=== PATIENT | female | born 1995 | race Caucasian/White ===

== ENCOUNTER → 2019-04-06 | Outpatient (CLI) ==
[~2019-04-06] MED LIST: IBUP-1780 PO
== END ==
LOC: LABNPT 16:19
PROVIDERS: ATTEND Obstetrics & Gynecology
DX: O03.1 Delayed or excessive hemorrhage following incomplete spontaneous abortion (principal)

== ENCOUNTER 2019-04-08 05:34 | Outpatient (CLI) | payer BC ==
[~2019-04-08] VITALS: Ht 175 cm; Wt 72.0 kg
[2019-04-09] MEDS ORDERED: IBUP-1780 PO (16:41)
== END 2019-04-08 13:14 | disposition home or self-care (01) ==
LOC: PREOP 05:34
PROVIDERS: ATTEND Obstetrics & Gynecology
DX: Z01.818 Encounter for other preprocedural examination (principal)

== ENCOUNTER 2019-04-09 12:58 | Day surgery (SDC) | payer BC ==
[2019-04-09] VITALS (11 sets, daily range): BP systolic 94–129; BP diastolic 55–82
[~2019-04-09] VITALS: Ht 175 cm; Wt 72.0 kg
[2019-04-09] MEDS ORDERED: LACTATED RINGERS 1,000 ML IV PRN (13:10)
[2019-04-09 13:34] LABS: BASOPHILS % (AUTO) 0 % (0-10); EOSINOPHILS # (AUTO) 0.1 10^3/uL (0.0-0.3); EOSINOPHILS % (AUTO) 2 % (0-10); HEMATOCRIT 41 % (35-52); HEMOGLOBIN 13.9 G/DL (11.5-16.0); LYMPHOCYTES # (AUTO) 1.9 X 10^3 (1.0-4.0); LYMPHOCYTES % (AUTO) 29 % (12-44); MEAN CORPUSCULAR HEMOGLOBIN 30 PG (25-34); MEAN CORPUSCULAR HGB CONC 34 G/DL (32-36); MEAN CORPUSCULAR VOLUME 87 FL (80-99); MEAN PLATELET VOLUME 11.3 FL (7.4-10.4); MONOCYTES # (AUTO) 0.6 X 10^3 (0.0-1.0); MONOCYTES % (AUTO) 10 % (0-12); NEUTROPHILS # (AUTO) 3.7 X 10^3 (1.8-7.8); NEUTROPHILS % (AUTO) 59 % (42-75); PLATELET COUNT 215 10^3/uL (130-400); RED CELL DISTRIBUTION WIDTH 12.8 % (10.0-14.5); WHITE BLOOD COUNT 6.4 10^3/uL (4.3-11.0)
[2019-04-09] MEDS ORDERED: MIDAZOLAM 2 MG/2 ML (VERSED) VIAL ONE (13:50)
[2019-04-09] MEDS ORDERED: DEXAMETHASONE 10 MG/ML (DECADRON) 1 ML VIAL ONE (13:50)
[2019-04-09] MEDS ORDERED: fentaNYL INJECTION 100 MCG/2 ML AMP ONE (13:50)
[2019-04-09] MEDS ORDERED: LIDOCAINE PF 2% 5 ML (XYLOCAINE) VIAL ONE (13:50)
[2019-04-09] MEDS ORDERED: ONDANSETRON 4 MG/2 ML (SDV) Z0FRAN ONE (13:50)
[2019-04-09] MEDS ORDERED: SEVOFLURANE (ULTANE) 15 ML INHAL SOLN ONE (13:50)
[2019-04-09] MEDS ORDERED: proPOfol 200 MG/20 ML (DIPRIVAN) VIAL IV ONE (13:50)
[2019-04-09] MEDS ORDERED: D5 LR IV SOLUTION 1,000 ML IV SCH (14:35)
--- NOTE | 2019-04-09 14:35 | Progress Note-Post Operative ---
Post-Operative Progess Note Surgeon (s)/Computer Forensics Investigator (s) Surgeon KIRSTEN HILL MD Computer Forensics Investigator: none Pre-Operative Diagnosis missed at 12 weeks Post-Operative Diagnosis same Procedure & Operative Findings Date of Procedure 04/09/19 Procedure Performed/Findings D&C Anesthesia Type geta Estimated Blood Loss Estimated blood loss (mL): Minimal Specimens/Packing Specimens Removed uterine contents KIRSTEN HILL MD Apr 09, 2019 14:35
--- NOTE | 2019-04-09 14:35 | Progress Note-Pre Operative ---
Pre-Operative Progress Note H&P Reviewed The H&P was reviewed, patient examined and no changes noted. Date Seen by Provider: Apr 09, 2019 Time Seen by Provider: 14:34 Date H&P Reviewed: Apr 09, 2019 Time H&P Reviewed: 14:34 Pre-Operative Diagnosis: missed at 12 weeks KIRSTEN HILL MD Apr 09, 2019 14:35
--- NOTE | 2019-04-09 14:37 | Discharge Inst-Surgical ---
Discharge Inst-Surgical Depart Medication/Instructions New, Converted or Re-Newed RX: Call to Patients Pharmacy Consults/Follow Up Patient Instructions: as directed Orders & Referrals Follow Up Appt: Call to make follow up appt. for patient in 2 weeks. Activity: Rest for 24 hours, than as tolerated. Please call in RX to patient pharmacy. Diet: As tolerated-Clear Liquids only if nauseated. shower or tub bathe as desired. No driving for 24 hours, no alcoholic beverages for 24 hours, and nothing per vagina (no tampons, douching, or intercourse) for 2 weeks. Patient to return to the clinic as soon as possible for: Temperature greater than 101F, Severe Pain, Foul discharge from incision or vagina, Excessive Bleeding (more than a period). Activity Activity as Tolerated: Yes Diet Discharge Diet: No Restrictions KIRSTEN HILL MD Apr 09, 2019 14:37
[2019-04-09] MEDS ORDERED: ONDANSETRON 4 MG/2 ML (SDV) Z0FRAN IVP PRN ×2 (14:45→15:15)
[2019-04-09] MEDS ORDERED: HYDROcodone/APAP 10 MG/325 MG (LORTAB) TAB PO PRN (14:45)
[2019-04-09] MEDS ORDERED: KETOROLAC 30 MG/ML VIAL IVP ONE (14:45)
[2019-04-09] MEDS ORDERED: MEPERIDINE (DEMEROL) INJ 100 MG/ML IM ONE (14:45)
[2019-04-09] MEDS ORDERED: PROMETHAZINE INJ 25 MG/ML (PHENERGAN) AMP IM ONE (14:45)
[2019-04-09] MEDS ORDERED: KETOROLAC 30 MG/ML VIAL ONE (14:54)
[2019-04-09] MEDS ORDERED: HYDROmorphone 2 MG/ML VIAL (DILAUDID) IV ONE (15:15)
--- NOTE | 2019-04-09 15:19 | Anesthesia-General Post-Op ---
General Patient Condition Mental Status/LOC: Same as Preop Cardiovascular: Satisfactory Nausea/Vomiting: Absent Respiratory: Satisfactory Pain: Controlled Complications: Absent Post Op Complications Complications None Follow Up Care/Instructions Patient Instructions None needed. Anesthesia/Patient Condition Patient Condition Patient is doing well, no complaints, stable vital signs, no apparent adverse anesthesia problems. No complications reported per nursing. D/C home per [facility] Criteria: Yes ODIN ALVARADO CRNA Apr 09, 2019 15:19
[2019-04-09] MEDS ORDERED: IBUP-1780 PO (16:41)
--- NOTE | 2019-04-09 22:25 | OPERATIVE REPORT ---
DATE OF SERVICE: 04/09/2019 PREOPERATIVE DIAGNOSIS: Missed . POSTOPERATIVE DIAGNOSIS: Missed . OPERATIVE PROCEDURE: D and C for missed , at 12 weeks' gestation. OPERATIVE DESCRIPTION: With the patient in supine position under satisfactory general anesthesia, she was repositioned in the dorsal lithotomy position in the [facility] cane stirrups and prepped and draped in the usual fashion for vaginal surgery. Weighted speculum placed in posterior fornix of vagina, cervix exposed and grasped anteriorly with single tooth tenaculum. Uterus sounded to 14 cm with uterine sound. It was noted that there was purulent discharge at the cervical os. A culture for aerobes and anaerobes was obtained prior to initiating the procedure. The cervix was then serially dilated requiring very little dilation to reach a #10 Hegar dilation. A #10 curved suction curette was then introduced and a large amount of necrotic decidual and placental appearing tissue, blood clot and debris was evacuated from the uterus. There was minimal odor associated with this. The endometrial cavity was then sharply curettaged in all 4 quadrants to good uterine cry. Endometrial cavity was vacuum curettaged a final time to remove all blood clot and debris and then the tenaculum was removed from the cervix. There was no bleeding from the puncture site. There was a slight oozing from the cervical os, but this decreased over the next few minutes. With sponge, needle counts correct, hemostasis was assured and no significant bleeding. The procedure was terminated. The patient was uneventfully awakened from general anesthesia and transferred to the recovery room in stable condition. Job ID: [id number] DocumentID: [id number] Dictated Date: 04/09/2019 15:00:49 Airline Hostess Date: 04/09/2019 22:24:52 Dictated By: KIRSTEN HILL MD [facility]
== END 2019-04-09 17:10 | disposition home or self-care (01) ==
LOC: SDC 12:58
PROVIDERS: ATTEND Obstetrics & Gynecology
DX: O02.1 Missed abortion (principal); O41.8X90 Other specified disorders of amniotic fluid and membranes, unspecified trimester, not applicable or unspecified; Z82.49 Family history of ischemic heart disease and other diseases of the circulatory system
CPT/HCPCS: 36415; 85025; 86850; 86900; 86901; 87070; 87075; 87076; 87077; 87081; 87185; 87205

== ENCOUNTER 2020-06-21 16:41 | Inpatient (IN) | payer BC ==
[~2020-06-21] VITALS: Ht 175.3 cm; Wt 91.0 kg
[2020-06-21 16:50] VITALS: BP 132/83
[2020-06-21] MEDS ORDERED: D5 LR IV SOLUTION 1,000 ML IV ONE (17:12)
[2020-06-21 17:14] LABS: BILIRUBIN,URINE NEGATIVE (NEGATIVE); CLARITY,URINE CLEAR; COLOR,URINE YELLOW; GLUCOSE, URINE (UA) NEGATIVE (NEGATIVE); KETONES,URINE NEGATIVE (NEGATIVE); LEUKOCYTE ESTERASE ,URINE NEGATIVE (NEGATIVE); NITRITE,URINE NEGATIVE (NEGATIVE); PH,URINE 5.5 (5-9); PROTEIN,URINE NEGATIVE (NEGATIVE)
[2020-06-21] MEDS: D5 LR IV SOLUTION 1,000 ML IV SCH (17:30)
[2020-06-21] MEDS ORDERED: D5 LR IV SOLUTION 1,000 ML IV SCH (17:30)
[2020-06-21 17:39] LABS: BACTERIA,URINE TRACE /HPF; WBC,URINE 0-2 /HPF
[2020-06-21 17:45] LABS: BASOPHILS % (AUTO) 0 % (0-10); EOSINOPHILS % (AUTO) 1 % (0-10); HEMOGLOBIN 9.9 g/dL (11.5-16.0)
[2020-06-21 17:46] LABS: HEMATOCRIT 30 % (35-52); LYMPHOCYTES # (AUTO) 1.5 10^3/uL (1.0-4.0); LYMPHOCYTES % (AUTO) 20 % (12-44); MEAN CORPUSCULAR HEMOGLOBIN 28 pg (25-34); MEAN CORPUSCULAR HGB CONC 33 g/dL (32-36); MEAN CORPUSCULAR VOLUME 84 fL (80-99); MONOCYTES # (AUTO) 0.8 10^3/uL (0.0-1.0); MONOCYTES % (AUTO) 11 % (0-12); NEUTROPHILS # (AUTO) 4.9 10^3/uL (1.8-7.8); NEUTROPHILS % (AUTO) 68 % (42-75); PLATELET COUNT 123 10^3/uL (130-400); WHITE BLOOD COUNT 7.2 10^3/uL (4.3-11.0)
[2020-06-21] MEDS ORDERED: BETAMETHASONE ACE/NA PHOS 6 MG/ML (CELESTONE SOLUSPAN) ONE (19:46)
--- NOTE | 2020-06-21 19:50 | History & Physical ---
History and Physical Date Seen by Provider: June 21, 2020 Time Seen by Provider: 19:45 This patient is a 25-year-old white female currently at 35 weeks gestation with a dichorionic diamniotic twin gestation. Her has been uncomplicated to date. She presented with complaint of pressure and tightening all day yesterday and through the day today with increasing intensity and frequency. She denies rupture membranes or bleeding. Allergies are none Medications are vitamins and supplemental folic acid Medical social and surgical history is all per the antepartum record HEENT exam is normal Neck is supple no lymphadenopathy no thyromegaly Abdomen is gravid soft nontender nondistended Extremities show no clubbing or cyanosis. There is no Homans' sign. Pelvic exam per the labor delivery nurse showed a cervix essentially closed and long. After a period of an hour recheck showed no change. monitor does show contractions every 4 to 6 minutes lasting 60 to 90 seconds. The patient feels the contractions but describes them more as a tightening rather than a pain. She does feel like to contractions and pressure have been consistent since presentation and not improving any in spite of hydration with a liter of D5LR. Laboratory Tests 06/21/20 17:30 Lab work is noted it is of concerned that her platelet count is now 123,000 while at 28 weeks it was around 159,000 and initially in her was around 189,000 Assessment and plan 35-week with dichorionic diamniotic twins. Bedside ultrasound confirms breech presentation for baby A baby B appears to be transverse this has been stable over the last couple of weeks. Platelet count is showing a decrease to the but currently is over 100,000 we will just continue observation in that regard. Considering the patient's relatively regular contractions with no significant decrease in spite of hydration we will continue observation for the process to have time to declare itself. Patient does understand that if she demonstrates labor she would be delivered by since her first baby is breech. We will go ahead and give a dose of betamethasone 12 mg IM. Considering that the patient has not shown any cervical change in her contractions have not definitely increased we will allow her to eat and drink while we continue evaluation and observation 35-week dichorionic amniotic twins with labor Allergies and Home Medications Allergies Coded Allergies: No Known Drug Allergies (Unverified , 04/08/19) Home Medications Ibuprofen 800 Mg Tablet, 800 MG PO Q6H PRN for PAIN-MILD Prescribed by: GUSTAVO MAGDALENO on 04/09/19 1641 Patient Home Medication List Home Medication List Reviewed: Yes KIRSTEN HILL MD June 21, 2020 19:50
[2020-06-21 20:00] VITALS: BP 123/84
[2020-06-21] MEDS ORDERED: BETAMETHASONE ACE/NA PHOS 6 MG/ML (CELESTONE SOLUSPAN) IM SCH (20:00)
[2020-06-21 20:44] VITALS: BP 132/83
[2020-06-22] VITALS: BP 128/74
[2020-06-22] MEDS: D5 LR IV SOLUTION 1,000 ML IV SCH ×4 (02:13→22:06)
[2020-06-22 03:55] VITALS: BP 115/76
[2020-06-22 07:22] VITALS: BP 129/79
[2020-06-22 11:26] VITALS: BP 124/69
--- NOTE | 2020-06-22 12:45 | Progress Note ---
Standard Progress Note Progress Notes/Assess & Plan Date Seen by a Provider: June 22, 2020 Time Seen by a Provider: 08:00 Progress/Assessment & Plan This patient reports continued episodic back pain. She denies contractions specifically although she does report that her tummy tightens which correlates to the contractions noted on the monitor which correlates with her back pain. Monitor currently showing contractions about every 2 to 4 minutes. Patient denies rupture membranes or bleeding. She does feel baby both babies moving. Vital signs are stable. Patient is afebrile. Vital Signs Date Time Temp Pulse Resp B/P (MAP) Pulse Ox O2 Delivery O2 Flow Rate FiO2 06/22/20 07:22 37.2 64 16 129/79 (96) 100 Room Air 06/22/20 03:55 37.2 86 18 115/76 (89) Room Air 06/22/20 00:00 37.2 71 18 128/74 (92) 06/21/20 20:44 36.8 66 18 98 Room Air 06/21/20 20:00 18 123/84 (97) 06/21/20 16:50 36.8 66 18 98 Room Air I & O 06/22/20 07:00 Intake Total 2000 ml Balance 2000 ml The abdomen is gravid soft nontender Extremities show no clubbing or cyanosis. There is no Homans' sign. Pelvic exam shows a cervix 80 to 90% effaced and tightly closed. The presenting part is footling breech Assessment and plan 35-1/7 weeks gestation with twins and with labor/contractions. Patient had received 1 dose of betamethasone and we will repeat that dose after 24 hours. At this point we will continue observation with intermittent monitoring and evaluation intermittently for progression of labor. Patient understands that if she demonstrates labor we will plan for delivery and with fetus a being breech that would mean a . KIRSTEN HILL MD June 22, 2020 12:45
--- NOTE | 2020-06-22 12:50 | Progress Note ---
Standard Progress Note Progress Notes/Assess & Plan Date Seen by a Provider: June 22, 2020 Time Seen by a Provider: 12:45 Progress/Assessment & Plan This patient reports continued episodic back pain. She denies contractions specifically although she does report that her tummy tightens which correlates to the contractions noted on the monitor which correlates with her back pain. Monitor currently showing contractions about every 2 to 4 minutes. Patient denies rupture membranes or bleeding. She does feel baby both babies moving. Vital signs are stable. Patient is afebrile. Vital Signs Date Time Temp Pulse Resp B/P (MAP) Pulse Ox O2 Delivery O2 Flow Rate FiO2 06/22/20 07:22 37.2 64 16 129/79 (96) 100 Room Air 06/22/20 03:55 37.2 86 18 115/76 (89) Room Air 06/22/20 00:00 37.2 71 18 128/74 (92) 06/21/20 20:44 36.8 66 18 98 Room Air 06/21/20 20:00 18 123/84 (97) 06/21/20 16:50 36.8 66 18 98 Room Air I & O 06/22/20 07:00 Intake Total 2000 ml Balance 2000 ml The abdomen is gravid soft nontender Extremities show no clubbing or cyanosis. There is no Homans' sign. Pelvic exam shows a cervix 80 to 90% effaced and tightly closed. The presenting part is footling breech Assessment and plan 35-1/7 weeks gestation with twins and with labor/contractions. Patient had received 1 dose of betamethasone and we will repeat that dose after 24 hours. At this point we will continue observation with intermittent monitoring and evaluation intermittently for progression of labor. Patient understands that if she demonstrates labor we will plan for delivery and with fetus a being breech that would mean a . June 22, 2020 at 12:49 PM Patient reports contractions seem to have spaced out some but she continues to feel some back pain and pressure. She denies rupture membranes or bleeding. monitor is showing contractions about every 6 or 8 minutes with normal heart rate pattern for both fetuses Repeat cervical exam shows a cervix almost 1 cm dilated and almost 100% effaced which is a noticeable change from this morning. Considering this change of cervix and the persistent contraction plan now is to continue observation for the 24 hours pacing interval for betamethasone doses and then continue observation overnight with plan for primary delivery tomorrow afternoon to allow for the maximum benefit from the steroid. Should the contractions stop altogether and her cervix show no further change then we could modify that plan to allow for follow-up as an outpatient KIRSTEN HILL MD June 22, 2020 12:50
[2020-06-22 16:09] VITALS: BP 121/70
[2020-06-22 20:30] VITALS: BP 149/87
[2020-06-23] VITALS (14 sets, daily range): BP systolic 110–153; BP diastolic 72–98
[2020-06-23 05:49] LABS: BASOPHILS % (AUTO) 0 % (0-10); EOSINOPHILS % (AUTO) 0 % (0-10); HEMATOCRIT 30 % (35-52); HEMOGLOBIN 9.4 g/dL (11.5-16.0); LYMPHOCYTES # (AUTO) 1.1 10^3/uL (1.0-4.0); LYMPHOCYTES % (AUTO) 11 % (12-44); MEAN CORPUSCULAR HEMOGLOBIN 28 pg (25-34); MEAN CORPUSCULAR HGB CONC 32 g/dL (32-36); MEAN CORPUSCULAR VOLUME 88 fL (80-99); MONOCYTES # (AUTO) 0.6 10^3/uL (0.0-1.0); MONOCYTES % (AUTO) 6 % (0-12); NEUTROPHILS # (AUTO) 7.9 10^3/uL (1.8-7.8); NEUTROPHILS % (AUTO) 82 % (42-75); PLATELET COUNT 91 10^3/uL (130-400); WHITE BLOOD COUNT 9.6 10^3/uL (4.3-11.0)
--- NOTE | 2020-06-23 07:39 | Progress Note ---
Standard Progress Note Progress Notes/Assess & Plan Date Seen by a Provider: June 23, 2020 Time Seen by a Provider: 07:36 Progress/Assessment & Plan This patient reports continued episodic back pain. She denies contractions specifically although she does report that her tummy tightens which correlates to the contractions noted on the monitor which correlates with her back pain. Monitor currently showing contractions about every 2 to 4 minutes. Patient denies rupture membranes or bleeding. She does feel baby both babies moving. Vital signs are stable. Patient is afebrile. Vital Signs Date Time Temp Pulse Resp B/P (MAP) Pulse Ox O2 Delivery O2 Flow Rate FiO2 06/22/20 07:22 37.2 64 16 129/79 (96) 100 Room Air 06/22/20 03:55 37.2 86 18 115/76 (89) Room Air 06/22/20 00:00 37.2 71 18 128/74 (92) 06/21/20 20:44 36.8 66 18 98 Room Air 06/21/20 20:00 18 123/84 (97) 06/21/20 16:50 36.8 66 18 98 Room Air I & O 06/22/20 07:00 Intake Total 2000 ml Balance 2000 ml The abdomen is gravid soft nontender Extremities show no clubbing or cyanosis. There is no Homans' sign. Pelvic exam shows a cervix 80 to 90% effaced and tightly closed. The presenting part is footling breech Assessment and plan 35-1/7 weeks gestation with twins and with labor/contractions. Patient had received 1 dose of betamethasone and we will repeat that dose after 24 hours. At this point we will continue observation with intermittent monitoring and evaluation intermittently for progression of labor. Patient understands that if she demonstrates labor we will plan for delivery and with fetus a being breech that would mean a . June 22, 2020 at 12:49 PM Patient reports contractions seem to have spaced out some but she continues to feel some back pain and pressure. She denies rupture membranes or bleeding. monitor is showing contractions about every 6 or 8 minutes with normal heart rate pattern for both fetuses Repeat cervical exam shows a cervix almost 1 cm dilated and almost 100% effaced which is a noticeable change from this morning. Considering this change of cervix and the persistent contraction plan now is to continue observation for the 24 hours pacing interval for betamethasone doses and then continue observation overnight with plan for primary delivery tomorrow afternoon to allow for the maximum benefit from the steroid. Should the contractions stop altogether and her cervix show no further change then we could modify that plan to allow for follow-up as an outpatient June 23, 2020 This patient complains of occasional contractions that she feels mostly in her back. Patient denies rupture membranes or bleeding. She does feel both baby is moving. Vital Signs Date Time Temp Pulse Resp B/P (MAP) Pulse Ox O2 Delivery O2 Flow Rate FiO2 06/23/20 05:55 36.8 86 18 130/76 (94) 100 Room Air 06/22/20 20:30 37.0 61 18 149/87 (107) 99 Room Air 06/22/20 16:09 36.9 72 18 121/70 (87) 100 Room Air 06/22/20 11:26 36.5 74 Laboratory Tests 06/23/20 05:23 16 124/69 (87) 100 Room Air I & O 06/23/20 07:00 Intake Total 2000 ml Balance 2000 ml Vital signs are stable. Patient is afebrile. Lab work shows a decline in platelets to 91,000 The abdomen is benign. Pelvic exam shows a cervix that is little more than a centimeter dilated and over 90% effaced the presenting part is footling breech monitor shows irregular occasional contractions and normal heart rate pattern for both fetuses Assessment and plan hospital day 3 for patient now at 35-2/7 weeks gestation with dichorionic diamniotic twins and with labor. Patient also has thrombocytopenia. She has had both doses of betamethasone. At this point we will continue observation if she continues to contract and demonstrates any further clear cervical change we would proceed with delivery as the fetus A is in a breech presentation KIRSTEN HILL MD June 23, 2020 07:39
[2020-06-23] MEDS: D5 LR IV SOLUTION 1,000 ML IV SCH (10:47)
[2020-06-23] MEDS ORDERED: metroNIDAZOLE 500MG/100ML IVPB 100 ML ONE (12:51)
[2020-06-23] MEDS ORDERED: METOCLOPRAMIDE INJ 10 MG/2 ML (REGLAN) ONE (12:51)
[2020-06-23] MEDS ORDERED: FAMOTIDINE 20MG/2ML IV (PEPCID) ONE (12:51)
[2020-06-23] MEDS ORDERED: ceFAZolin 2 GM IV Premixed 50 ML ONE (12:51)
[2020-06-23] MEDS ORDERED: CITRIC ACID/SOB CIT (BICITRA) 30 ML UDC ONE (12:51)
[2020-06-23] MEDS ORDERED: OXYTOCIN PRE-MIX DRIP 1,000 ML IV ONE (13:02)
[2020-06-23] MEDS ORDERED: fentaNYL INJ 100 MCG/2 ML AMP ONE (13:03)
[2020-06-23] MEDS ORDERED: CATHETER FLUSH 10 ML SYR IV PRN (13:15)
[2020-06-23] MEDS ORDERED: CITRIC ACID/SOB CIT (BICITRA) 30 ML UDC PO ONE (13:15)
[2020-06-23] MEDS ORDERED: FAMOTIDINE 20MG/2ML IV (PEPCID) IV ONE (13:15)
[2020-06-23] MEDS ORDERED: metroNIDAZOLE 500MG/100ML IVPB 100 ML IV ONE ×2 (13:15)
[2020-06-23] MEDS ORDERED: METOCLOPRAMIDE INJ 10 MG/2 ML (REGLAN) IV ONE (13:15)
[2020-06-23] MEDS ORDERED: ceFAZolin INJECTION 2,000 MG in WATER (STERILE) FOR INJECTION 10 ML IV ONE (13:15)
[2020-06-23] MEDS ORDERED: ceFAZolin 2 GM IV Premixed 50 ML IV ONE (13:15)
[2020-06-23] MEDS ORDERED: LACTATED RINGERS 1,000 ML IV PRN ×2 (13:15)
[2020-06-23] MEDS ORDERED: OXYC1TAB12 PO (13:17)
[2020-06-23] MEDS ORDERED: IBUP-1780 PO (13:17)
[2020-06-23] MEDS ORDERED: DOCU-143 PO (13:17)
--- NOTE | 2020-06-23 13:18 | Discharge Inst-Surgical ---
Discharge Inst-Surgical Depart Medication/Instructions New, Converted or Re-Newed RX: RX on Chart Consults/Follow Up Patient Instructions: As directed Orders & Referrals Follow Up Appt: RTC Next Friday, June 30, 2020 at 9:30 AM for incision check. Call to make follow up appt. for patient in 4 weeks. Wound Care: Remove jose, apply benzoin and steri strips. Activity Per routine post instructions. Please call in RX to patient pharmacy. Diet as tolerated Patient may shower or tub bathe as desired. Continue home meds Activity Activity as Tolerated: No Diet Discharge Diet: No Restrictions KIRSTEN HILL MD June 23, 2020 13:18
[2020-06-23] MEDS ORDERED: KETOROLAC 30 MG/ML VIAL ONE (13:57)
[2020-06-23] MEDS ORDERED: BUPIVACAINE 0.5% 30 ML (SENSORCAINE) VIAL ONE (14:04)
[2020-06-23] MEDS: KETOROLAC 30 MG/ML VIAL IVP SCH ×2 (14:37→20:56)
[2020-06-23] MEDS ORDERED: fentaNYL INJ 100 MCG/2 ML AMP IVP PRN (14:45)
[2020-06-23] MEDS ORDERED: TETANUS,DIPTH,PERTUSS P/F (BOOSTRIX) 0.5 ML VIAL IM ONE (14:45)
[2020-06-23] MEDS ORDERED: ONDANSETRON 4 MG/2 ML (SDV) Z0FRAN IVP PRN (14:45)
[2020-06-23] MEDS ORDERED: D5 LR IV SOLUTION 1,000 ML IV SCH (14:45)
[2020-06-23] MEDS ORDERED: OXYTOCIN PRE-MIX DRIP 500 ML IV SCH (14:45)
[2020-06-23] MEDS ORDERED: MEASLES,MUMPS,RUBELLA 1 EA INJ SC ONE (14:45)
[2020-06-23] MEDS: oxyCODONE/APAP 10/325MG (PERCOCET 10) TABLET PO PRN (17:05)
[2020-06-23] MEDS: DOCUSATE SODIUM 100 MG (COLACE) CAP PO SCH (20:56)
[2020-06-23] MEDS ORDERED: DOCUSATE SODIUM 100 MG (COLACE) CAP PO SCH (21:00)
--- NOTE | 2020-06-23 21:03 | OPERATIVE REPORT ---
DATE OF SERVICE: 06/23/2020 PREOPERATIVE DIAGNOSES: A 35-week twins with labor, thrombocytopenia and breech presentation. POSTOPERATIVE DIAGNOSES: A 35-week twins with labor, thrombocytopenia and breech presentation. OPERATIVE PROCEDURE: Primary low transverse delivery of viable twins. Twin A, male, delivered breech, weight 5 pounds 9 ounces, Apgars were 7 and 9. Cord blood pH was 7.33. Twin B was a female, 5 pounds and 14 ounces. time was 1345. time for A was 1344. Cord blood pH was 7.34. Apgars were 8 and 9. OPERATIVE DESCRIPTION: With the patient in the supine position under satisfactory spinal analgesia, she was prepped and draped in the usual fashion for abdominal surgery. Rosenberg catheter was placed in the urinary bladder. A repeat Pfannenstiel incision made through the skin at the site of the patient's previous Pfannenstiel scar from a bladder surgery. The abdomen was entered in the usual manner. Bladder retractor placed in position. A clean scalpel was used to make a 4 cm hysterotomy incision transversely across the lower uterine segment that was extended by blunt dissection as well. Copious clear fluid was released on hysterotomy. Breech extraction was performed on baby A. The umbilical cord was doubly clamped and cut while the baby suctioned. The was passed to the location man in attendance for baby A. Baby B was born also via breech extraction with the feet being grasped and brought down to the incision before the membranes were ruptured and then the delivery completed by breech extraction. The infant was bulb suctioned while the cord was clamped and cut and the infant passed to the location man in attendance for baby B. Stats for A and B were as noted above. The placenta delivered spontaneously, 1 Peterson and 1 Mota. Both were sent to pathology for permanent section. Twin A's umbilical cord was marked with a plastic cord clamp. The placentas were sent to pathology for permanent section. The uterus was exteriorized and interior wiped clean with a wet laparotomy sponge. Uterine incision then closed with running locked suture of 2-0 Vicryl. Hemostasis was complete. The uterus was returned to abdominal cavity. All blood clot and debris removed from the abdominal cavity. With sponge and needle counts correct, hemostasis assured. Anterior parietal peritoneum was closed with running suture of 2-0 Vicryl. Rectus muscles were closed with that suture as well. The rectus fascia was closed with 2-0 Vicryl and the skin was stapled. Sponge and needle counts were correct on completion of the procedure. Blood loss was around 800 mL. The patient tolerated the delivery well and was transferred to the recovery room in stable condition. The baby was remained in the OR with the mom and dad. Job ID: [id number] DocumentID: [id number] Dictated Date: 06/23/2020 14:12:32 Top Taper Machine Date: 06/23/2020 21:02:28 Dictated By: KIRSTEN HILL MD
[2020-06-24] MEDS: KETOROLAC 30 MG/ML VIAL IVP SCH ×2 (02:05→08:09)
[2020-06-24 04:00] VITALS: BP 158/84
[2020-06-24] MEDS: oxyCODONE/APAP 10/325MG (PERCOCET 10) TABLET PO PRN (05:31)
[2020-06-24] MEDS: DOCUSATE SODIUM 100 MG (COLACE) CAP PO SCH ×2 (08:09→20:24)
[2020-06-24 08:26] VITALS: BP 151/93
--- NOTE | 2020-06-24 09:17 | Anesthesia-Regional Post-Op ---
Regional Patient Condition Mental Status: Alert, Oriented x3 Circulation: Same as Pre-Op Headache: Absent Sensation: Full Recovery Motor Block: Absent Post Op Complications Complications None Follow Up Care/Instructions Patient Instructions None needed. Anesthesia/Patient Condition Patient is doing well, no complaints, stable vital signs, no apparent adverse anesthesia problems. No complications reported per nursing. D/C home per [facility] Criteria: ODIN Saab CRNA June 24, 2020 09:17
--- NOTE | 2020-06-24 09:23 | Progress Note ---
Standard Progress Note Progress Notes/Assess & Plan Date Seen by a Provider: June 24, 2020 Time Seen by a Provider: 09:21 Progress/Assessment & Plan This patient reports continued episodic back pain. She denies contractions specifically although she does report that her tummy tightens which correlates to the contractions noted on the monitor which correlates with her back pain. Monitor currently showing contractions about every 2 to 4 minutes. Patient denies rupture membranes or bleeding. She does feel baby both babies moving. Vital signs are stable. Patient is afebrile. Vital Signs Date Time Temp Pulse Resp B/P (MAP) Pulse Ox O2 Delivery O2 Flow Rate FiO2 06/22/20 07:22 37.2 64 16 129/79 (96) 100 Room Air 06/22/20 03:55 37.2 86 18 115/76 (89) Room Air 06/22/20 00:00 37.2 71 18 128/74 (92) 06/21/20 20:44 36.8 66 18 98 Room Air 06/21/20 20:00 18 123/84 (97) 06/21/20 16:50 36.8 66 18 98 Room Air I & O 06/22/20 07:00 Intake Total 2000 ml Balance 2000 ml The abdomen is gravid soft nontender Extremities show no clubbing or cyanosis. There is no Homans' sign. Pelvic exam shows a cervix 80 to 90% effaced and tightly closed. The presenting part is footling breech Assessment and plan 35-1/7 weeks gestation with twins and with labor/contractions. Patient had received 1 dose of betamethasone and we will repeat that dose after 24 hours. At this point we will continue observation with intermittent monitoring and evaluation intermittently for progression of labor. Patient understands that if she demonstrates labor we will plan for delivery and with fetus a being breech that would mean a . June 22, 2020 at 12:49 PM Patient reports contractions seem to have spaced out some but she continues to feel some back pain and pressure. She denies rupture membranes or bleeding. monitor is showing contractions about every 6 or 8 minutes with normal heart rate pattern for both fetuses Repeat cervical exam shows a cervix almost 1 cm dilated and almost 100% effaced which is a noticeable change from this morning. Considering this change of cervix and the persistent contraction plan now is to continue observation for the 24 hours pacing interval for betamethasone doses and then continue observation overnight with plan for primary delivery tomorrow afternoon to allow for the maximum benefit from the steroid. Should the contractions stop altogether and her cervix show no further change then we could modify that plan to allow for follow-up as an outpatient June 23, 2020 This patient complains of occasional contractions that she feels mostly in her back. Patient denies rupture membranes or bleeding. She does feel both baby is moving. Vital Signs Date Time Temp Pulse Resp B/P (MAP) Pulse Ox O2 Delivery O2 Flow Rate FiO2 06/23/20 05:55 36.8 86 18 130/76 (94) 100 Room Air 06/22/20 20:30 37.0 61 18 149/87 (107) 99 Room Air 06/22/20 16:09 36.9 72 18 121/70 (87) 100 Room Air 06/22/20 11:26 36.5 74 Laboratory Tests 06/23/20 05:23 16 124/69 (87) 100 Room Air I & O 06/23/20 07:00 Intake Total 2000 ml Balance 2000 ml Vital signs are stable. Patient is afebrile. Lab work shows a decline in platelets to 91,000 The abdomen is benign. Pelvic exam shows a cervix that is little more than a centimeter dilated and over 90% effaced the presenting part is footling breech monitor shows irregular occasional contractions and normal heart rate pattern for both fetuses Assessment and plan hospital day 3 for patient now at 35-2/7 weeks gestation with dichorionic diamniotic twins and with labor. Patient also has thrombocytopenia. She has had both doses of betamethasone. At this point we will continue observation if she continues to contract and demonstrates any further clear cervical change we would proceed with delivery as the fetus A is in a breech presentation June 24, 2020 This patient is without complaint. She is ambulating, voiding, tolerating oral intake well and has good pain control. Vital Signs 06/24/20 08:26 Temp 36.3 Pulse 59 Resp 18 B/P (MAP) 151/93 (112) Pulse Ox 99 O2 Delivery Room Air Vital signs are stable. Patient is afebrile. Fundus is firm below the umbilicus and nontender. The surgical incision is clean dry and intact. Extremities show no clubbing or cyanosis. There is no Homans' sign. Assessment and plan postoperative day #1 status post delivery for twins that were both breech. Patient is doing well will have routine convalescent care Final Diagnosis 35-week primary delivery for twins KIRSTEN HILL MD June 24, 2020 09:22
[2020-06-24 12:20] VITALS: BP 142/88
[2020-06-24] MEDS ORDERED: ONDANSETRON 4 MG (ZOFRAN) ORAL DISSOLVE TAB PO STA (12:30)
[2020-06-24] MEDS: IBUPROFEN 800 MG (MOTRIN) TAB PO SCH ×2 (13:52→20:24)
[2020-06-24 18:00] VITALS: BP 133/80
[2020-06-24 20:20] VITALS: BP 131/73
[2020-06-25 02:15] VITALS: BP 120/72
[2020-06-25] MEDS: IBUPROFEN 800 MG (MOTRIN) TAB PO SCH ×3 (02:22→19:26)
[2020-06-25] MEDS: DOCUSATE SODIUM 100 MG (COLACE) CAP PO SCH ×2 (10:03→21:05)
[2020-06-25 10:04] VITALS: BP 133/76
[2020-06-25] MEDS ORDERED: ONDANSETRON 4 MG (ZOFRAN) ORAL DISSOLVE TAB PO STA (11:55)
[2020-06-25 19:24] VITALS: BP 126/80
[2020-06-26 01:10] VITALS: BP 135/88
[2020-06-26] MEDS: IBUPROFEN 800 MG (MOTRIN) TAB PO SCH ×2 (01:12→08:02)
--- NOTE | 2020-06-26 07:27 | Progress Note ---
Standard Progress Note Progress Notes/Assess & Plan Date Seen by a Provider: June 26, 2020 Time Seen by a Provider: 07:26 Progress/Assessment & Plan This patient reports continued episodic back pain. She denies contractions specifically although she does report that her tummy tightens which correlates to the contractions noted on the monitor which correlates with her back pain. Monitor currently showing contractions about every 2 to 4 minutes. Patient denies rupture membranes or bleeding. She does feel baby both babies moving. Vital signs are stable. Patient is afebrile. Vital Signs Date Time Temp Pulse Resp B/P (MAP) Pulse Ox O2 Delivery O2 Flow Rate FiO2 06/22/20 07:22 37.2 64 16 129/79 (96) 100 Room Air 06/22/20 03:55 37.2 86 18 115/76 (89) Room Air 06/22/20 00:00 37.2 71 18 128/74 (92) 06/21/20 20:44 36.8 66 18 98 Room Air 06/21/20 20:00 18 123/84 (97) 06/21/20 16:50 36.8 66 18 98 Room Air I & O 06/22/20 07:00 Intake Total 2000 ml Balance 2000 ml The abdomen is gravid soft nontender Extremities show no clubbing or cyanosis. There is no Homans' sign. Pelvic exam shows a cervix 80 to 90% effaced and tightly closed. The presenting part is footling breech Assessment and plan 35-1/7 weeks gestation with twins and with labor/contractions. Patient had received 1 dose of betamethasone and we will repeat that dose after 24 hours. At this point we will continue observation with intermittent monitoring and evaluation intermittently for progression of labor. Patient understands that if she demonstrates labor we will plan for delivery and with fetus a being breech that would mean a . June 22, 2020 at 12:49 PM Patient reports contractions seem to have spaced out some but she continues to feel some back pain and pressure. She denies rupture membranes or bleeding. monitor is showing contractions about every 6 or 8 minutes with normal heart rate pattern for both fetuses Repeat cervical exam shows a cervix almost 1 cm dilated and almost 100% effaced which is a noticeable change from this morning. Considering this change of cervix and the persistent contraction plan now is to continue observation for the 24 hours pacing interval for betamethasone doses and then continue observation overnight with plan for primary delivery tomorrow afternoon to allow for the maximum benefit from the steroid. Should the contractions stop altogether and her cervix show no further change then we could modify that plan to allow for follow-up as an outpatient June 23, 2020 This patient complains of occasional contractions that she feels mostly in her back. Patient denies rupture membranes or bleeding. She does feel both baby is moving. Vital Signs Date Time Temp Pulse Resp B/P (MAP) Pulse Ox O2 Delivery O2 Flow Rate FiO2 06/23/20 05:55 36.8 86 18 130/76 (94) 100 Room Air 06/22/20 20:30 37.0 61 18 149/87 (107) 99 Room Air 06/22/20 16:09 36.9 72 18 121/70 (87) 100 Room Air 06/22/20 11:26 36.5 74 Laboratory Tests 06/23/20 05:23 16 124/69 (87) 100 Room Air I & O 06/23/20 07:00 Intake Total 2000 ml Balance 2000 ml Vital signs are stable. Patient is afebrile. Lab work shows a decline in platelets to 91,000 The abdomen is benign. Pelvic exam shows a cervix that is little more than a centimeter dilated and over 90% effaced the presenting part is footling breech monitor shows irregular occasional contractions and normal heart rate pattern for both fetuses Assessment and plan hospital day 3 for patient now at 35-2/7 weeks gestation with dichorionic diamniotic twins and with labor. Patient also has thrombocytopenia. She has had both doses of betamethasone. At this point we will continue observation if she continues to contract and demonstrates any further clear cervical change we would proceed with delivery as the fetus A is in a breech presentation June 24, 2020 This patient is without complaint. She is ambulating, voiding, tolerating oral intake well and has good pain control. Vital Signs 06/24/20 08:26 Temp 36.3 Pulse 59 Resp 18 B/P (MAP) 151/93 (112) Pulse Ox 99 O2 Delivery Room Air Vital signs are stable. Patient is afebrile. Fundus is firm below the umbilicus and nontender. The surgical incision is clean dry and intact. Extremities show no clubbing or cyanosis. There is no Homans' sign. Assessment and plan postoperative day #1 status post delivery for twins that were both breech. Patient is doing well will have routine convalescent care June 25, 2020 Patient is without complaint. She is ambulating, voiding, tolerating oral intake well and has good pain control. Vital Signs Date Time Temp Pulse Resp B/P (MAP) Pulse Ox O2 Delivery O2 Flow Rate FiO2 06/25/20 02:15 36.6 62 18 120/72 (88) Room Air 06/24/20 20:20 36.7 63 18 131/73 (92) Room Air 06/24/20 18:00 36.9 61 18 133/80 (97) 100 Room Air 06/24/20 12:20 36.3 64 18 142/88 (106) 99 Room Air I & O 06/25/20 07:00 Intake Total 600 ml Balance 600 ml Vital signs are stable. Patient is afebrile. The abdomen is benign. The fundus is firm below the umbilicus. Incision is clean dry and intact. Extremities show no clubbing cyanosis. There is no Homans' sign. Assessment and plan Postoperative day #2 status post delivery at 35 weeks gestation for twins. Patient will have routine convalescent care June 26, 2020 See discharge summary Final Diagnosis 35-week primary delivery of twins KIRSTEN HILL MD June 26, 2020 07:27
--- NOTE | 2020-06-26 07:30 | Discharge Summary ---
Discharge Summary 35-week primary delivery of twins This patient is a 25-year-old 1 white female who was admitted on June 21, 2020 with labor. Her is complicated by dichorionic DIamniotic twins. She presented with complaint of contractions and pressure. She was fernanda with regularity. She was hydrated and her contractions persisted. She did show slight cervical change with time. She was given a single dose of betamethasone on June 21. On June 22 patient had continued to contract her contractions did wax and wane but persisted and were lasting 60 to 90 seconds and were spaced 3 were from 2 to 3 minutes up to 8 or 10 minutes. She continued to complain of pain and pressure. She was given her second dose of betamethasone. On June 23 patient had continued to contract and showed some cervical change decision made to proceed with delivery. Patient was taken to the operating room where under spinal analgesia she was delivered of her twins. The delivery was uncomplicated the patient recovered uneventfully. On June 24 patient was ambulating, voiding, tolerating oral intake well and had good pain control. She had routine care through the day. On June 25 patient was essentially unchanged. She convalesced well. Now on June 26, 2020 patient is without complaint. She again is ambulating, voiding, tolerating oral intake well has good pain control. She is requesting discharge home. Is determined she can be discharged home. Principal diagnosis this hospitalization is 35 weeks primary delivery for twins Secondary diagnoses are dichorionic diamniotic twins, labor, breech presentation for twin A and for twin B Operation procedures include monitoring IM steroids IV fluids spinal anal gesia and primary delivery Patient was given appropriate discharge instructions verbally in writing a copy was placed in the chart. Discharge medications are Percocet Motrin and Colace patient is continue her home vitamins KIRSTEN HILL MD June 26, 2020 07:30
[2020-06-26 08:00] VITALS: BP 129/76
[2020-06-26] MEDS: DOCUSATE SODIUM 100 MG (COLACE) CAP PO SCH (08:02)
[2020-06-26 12:20] VITALS: BP 129/76
== END 2020-06-26 12:20 | disposition home or self-care (01) | DRG 786 ==
LOC: WSo 16:41 → LDRP 16:41 → WSo 20:30 → LDRP 06-22 19:08 → OBSVTOIN 06-23 13:13
PROVIDERS: ADMIT Obstetrics & Gynecology; ATTEND Obstetrics & Gynecology
PROC: 10D00Z1 Extraction of Products of Conception, Low, Open Approach (ICD-10-PCS; principal; 2020-06-23 13:15)
DX: O30.043 Twin pregnancy, dichorionic/diamniotic, third trimester (principal); O60.14X0 Preterm labor third trimester with preterm delivery third trimester, not applicable or unspecified; O99.12 Other diseases of the blood and blood-forming organs and certain disorders involving the immune mechanism complicating childbirth; O64.1XX1 Obstructed labor due to breech presentation, fetus 1; O64.1XX2 Obstructed labor due to breech presentation, fetus 2; D69.6 Thrombocytopenia, unspecified; Z37.2 Twins, both liveborn; Z3A.35 35 weeks gestation of pregnancy; Z3A.49 Greater than 42 weeks gestation of pregnancy
CPT/HCPCS: 36415; 81000; 85025; 86850; 86900; 86901; 87081; 87088; 99211; G0378

== ENCOUNTER → 2021-06-11 | Outpatient (CLI) | payer BC ==
[~2021-06-11] MED LIST changes: +DOCU-143 PO; +OXYC1TAB12 PO
== END ==
LOC: LABNPT 15:28
PROVIDERS: ATTEND Obstetrics & Gynecology
DX: Z34.81 Encounter for supervision of other normal pregnancy, first trimester (principal); Z3A.00 Weeks of gestation of pregnancy not specified
CPT/HCPCS: 87088; 87491; 87591

== ENCOUNTER → 2021-09-11 | Outpatient (CLI) | payer BC ==
--- NOTE | 2021-09-11 10:08 | Diagnostic Imaging Report ---
INDICATION: anatomy survey TECHNIQUE: Multiple real-time grayscale images were obtained over the gravid uterus. COMPARISON: None FINDINGS: The cervix measures 5.2 cm in length. Placenta is anteriorly positioned and there is no previa. The amount of amniotic fluid appears visually appropriate. Fetus is in cephalic presentation. The following structures are visualized and normal: Stomach, four-chamber heart, kidneys, urinary bladder, umbilical cord insertion, three-vessel cord, spine, cerebellum, cisterna magna, cerebral ventricles, profile, lips/nose, right ventricular outflow tract, left ventricular outflow tract. Biometrical measurements are as follows: Biparietal 4.88 cm, age 20 weeks 6 days. Head circumference 18.82 cm, age 21 weeks 1 days. Abdominal circumference 15.49 cm, age 20 weeks 5 days. Femur length 3.58 cm, age 21 weeks 3 days. Sonographic estimate age: 21 weeks 1 days. Sonographic estimated date of delivery: 01/21/2022. Estimated Weight: 391 gm (+/- 57 gm). LMP percentile: 97%. heart rate: 140 beats per minute. number: 1 of 1. IMPRESSION: Single live intrauterine with normal anatomy survey. Dictated by: Dictated on workstation # [id number]
== END ==
LOC: RAD FS 08:03
PROVIDERS: ATTEND Obstetrics & Gynecology
DX: Z34.82 Encounter for supervision of other normal pregnancy, second trimester (principal); Z3A.21 21 weeks gestation of pregnancy
CPT/HCPCS: 76805

== ENCOUNTER 2022-01-10 05:33 | Outpatient (CLI) | payer BC ==
[~2022-01-10] VITALS: Ht 175.3 cm; Wt 84.0 kg
[2022-01-11] MEDS ORDERED: PREN1CAP30 PO (15:42)
== END 2022-01-11 15:49 | disposition home or self-care (01) ==
LOC: PREOP 05:33
PROVIDERS: ATTEND Obstetrics & Gynecology
DX: Z01.818 Encounter for other preprocedural examination (principal)

== ENCOUNTER 2022-01-17 11:09 | Inpatient (IN) | payer BC ==
[2022-01-17] VITALS (7 sets, daily range): BP systolic 96–129; BP diastolic 47–99
[~2022-01-17] VITALS: Ht 175.3 cm; Wt 82.4 kg
[~2022-01-17 11:09] MED LIST changes: +PREN1CAP30 PO
[2022-01-17] MEDS ORDERED: metroNIDAZOLE 500MG/100ML IVPB 100 ML IV ONE (11:30)
[2022-01-17] MEDS ORDERED: FAMOTIDINE 20MG/2ML IV (PEPCID) IV ONE (11:30)
[2022-01-17] MEDS ORDERED: CITRIC ACID/SOB CIT (BICITRA) 30 ML UDC PO ONE (11:30)
[2022-01-17] MEDS ORDERED: LACTATED RINGERS 1,000 ML IV SCH ×2 (11:30)
[2022-01-17] MEDS ORDERED: METOCLOPRAMIDE INJ 10 MG/2 ML (REGLAN) IV ONE (11:30)
[2022-01-17] MEDS ORDERED: ceFAZolin INJECTION 2,000 MG in NS (IVPB) 50 ML IV ONE (11:30)
[2022-01-17 11:50] LABS: BASOPHILS % (AUTO) 0 % (0-10); EOSINOPHILS % (AUTO) 0 % (0-10); HEMATOCRIT 34 % (35-52); LYMPHOCYTES # (AUTO) 1.5 10^3/uL (1.0-4.0); LYMPHOCYTES % (AUTO) 15 % (12-44); MEAN CORPUSCULAR HEMOGLOBIN 27 pg (25-34); MEAN CORPUSCULAR HGB CONC 33 g/dL (32-36); MEAN CORPUSCULAR VOLUME 84 fL (80-99); MONOCYTES # (AUTO) 0.8 10^3/uL (0.0-1.0); MONOCYTES % (AUTO) 8 % (0-12); NEUTROPHILS # (AUTO) 7.6 10^3/uL (1.8-7.8); NEUTROPHILS % (AUTO) 76 % (42-75); PLATELET COUNT 166 10^3/uL (130-400); WHITE BLOOD COUNT 9.9 10^3/uL (4.3-11.0)
[2022-01-17] MEDS ORDERED: OXYTOCIN PRE-MIX DRIP 1,000 ML IV ONE (12:38)
[2022-01-17] MEDS ORDERED: fentaNYL INJ 100 MCG/2 ML AMP ONE (12:38)
[2022-01-17] MEDS ORDERED: PHENYLEPHRINE 100 MCG/ML 10 ML (ANESTHESIA) SYR ONE (13:01)
[2022-01-17] MEDS ORDERED: BUPIVACAINE 0.5% 30 ML (SENSORCAINE) VIAL ONE (13:22)
--- NOTE | 2022-01-17 13:37 | History & Physical ---
History and Physical Date Seen by Provider: Jan 17, 2022 Time Seen by Provider: 12:35 This patient is a 26-year-old 2 para 1 LC 2 female who presents at 38+ weeks gestation with polyhydramnios, Previous and lower uterine segment defect/isthmocele. Patient denies rupture membranes or bleeding. She does feel some increasing pressure But denies regular contractions. She does feel baby moving. Her GBS culture was negative after 35 weeks gestation. Allergies are none Medications are vitamins Medical social and surgical histories are per the antepartum record HEENT exam is normal Neck is supple no lymphadenopathy no thyromegaly Abdomen is gravid soft nontender nondistended Extremities show no clubbing or cyanosis. There is no Homans' sign. Pelvic exam was deferred Assessment and plan 38+ weeks gestation in a patient with previous with a uterine scar defect/isthmocele. She is admitted now for repeat delivery 38 weeks gestation repeat Allergies and Home Medications Allergies Coded Allergies: No Known Drug Allergies (Unverified , 04/08/19) Patient Home Medication List Home Medication List Reviewed: Yes Vit #116/Iron/FA/Dha ( Formula-Dha Softgel) 28 Mg Iron-800 Mcg- 200 Mg Capsule, 1 EACH PO, (Reported) Entered as Reported by: JIM FU on 01/11/22 1542 Discontinued Medications Docusate Sodium (Colace) 100 Mg Capsule, 100 MG PO BID Discontinued Reason: No Longer Taking Prescribed by: KIRSTEN VU on 06/23/20 1317 Ibuprofen (Ibuprofen) 800 Mg Tablet, 800 MG PO Q6H PRN for PAIN-MILD Discontinued Reason: No Longer Taking Prescribed by: KIRSTEN VU on 06/23/20 1317 Oxycodone HCl/Acetaminophen (Percocet 10-325 mg Tablet) 1 Each Tablet, 1 TAB PO Q8H PRN for PAIN-MODERATE Discontinued Reason: No Longer Taking Prescribed by: KIRSTEN VU on 06/23/20 Devan7 KIRSTEN HILL MD Jan 17, 2022 13:37
[2022-01-17] MEDS ORDERED: DOCU-143 PO (13:40)
[2022-01-17] MEDS ORDERED: OXYC1TAB12 PO (13:40)
[2022-01-17] MEDS ORDERED: IBUP-1780 PO (13:40)
--- NOTE | 2022-01-17 13:41 | Discharge Inst-Surgical ---
Discharge Inst-Surgical Depart Medication/Instructions New, Converted or Re-Newed RX: Transmitted to Pharmacy Consults/Follow Up Patient Instructions: As directed Orders & Referrals Follow Up Appt: RTC 1 week for incision check. Call to make follow up appt. for patient in 4 weeks. Wound Care: Remove jose, apply benzoin and steri strips. Activity Per routine post instructions. Prescriptions have been transmitted electronically for Percocet Motrin and Colace Diet as tolerated Patient may shower or tub bathe as desired. Continue home meds Activity Activity as Tolerated: No Diet Discharge Diet: No Restrictions KIRSTEN HILL MD Jan 17, 2022 13:41
[2022-01-17] MEDS ORDERED: D5 LR IV SOLUTION 1,000 ML IV SCH (14:45)
[2022-01-17] MEDS ORDERED: MEPERIDINE (DEMEROL) INJ 100 MG/ML IVP PRN (14:45)
[2022-01-17] MEDS ORDERED: TETANUS,DIPTH,PERTUSS P/F (BOOSTRIX) 0.5 ML VIAL IM ONE (14:45)
[2022-01-17] MEDS: OXYTOCIN PRE-MIX DRIP 500 ML IV SCH ×2 (15:00→19:09)
[2022-01-17] MEDS: KETOROLAC 30 MG/ML VIAL IV SCH ×2 (15:00→21:12)
[2022-01-17] MEDS: DOCUSATE SODIUM 100 MG (COLACE) CAP PO SCH (21:13)
--- NOTE | 2022-01-17 22:51 | OPERATIVE REPORT ---
DATE OF SERVICE: 01/17/2022 PREOPERATIVE DIAGNOSES: Term at 38 weeks' gestation with previous and with polyhydramnios and with isthmocele. PROCEDURE: Repeat low transverse delivery of a viable male infant with Apgars of 9 and 9 at 1 and 5 minutes respectively, weight of 8 pounds 1 ounce. time 1305 and a cord blood pH of 7.33. OPERATIVE DESCRIPTION: With the patient in the supine position, under satisfactory spinal anesthesia, she was prepped and draped in the usual fashion for abdominal surgery. Rosenberg catheter was placed in the urinary bladder. A repeat Pfannenstiel incision was made through the skin with a scalpel by removing the patient's previous Pfannenstiel incisional scar. The abdomen was then entered in the usual manner. Bladder retractor placed in position. Clean scalpel was used to make a 4 cm hysterotomy incision transversely across a rather large lower uterine segment window/isthmocele. This was comprised exclusively of peritoneum and membranes. That incision was extended bluntly releasing copious clear fluid. [place] forceps were applied to facilitate the delivery of the vigorous viable male . had Apgars and stats as noted above. The infant was bulb suctioned on delivery of the head. The delivery was completed. The umbilical cord was doubly clamped and cut and the infant passed to the pediatric nurse in attendance for the delivery. Cord bloods were obtained. The placenta delivered spontaneously Peterson, it was normal with a 3-vessel cord. The uterus was exteriorized, interior wiped clean with a wet laparotomy sponge and then uterine incision closed with a running locked suture of 2-0 Vicryl. Hemostasis was complete. The uterus was returned to the abdominal cavity. All blood clot and debris removed from the abdominal cavity. Sponge and needle counts correct and hemostasis assured. The anterior parietal peritoneum was closed with a running suture of 2-0 Vicryl. The rectus muscles were closed with that same suture. The rectus fascia was closed with 2-0 Vicryl. Subcutaneous tissue was closed with 2-0 Vicryl and the skin was stapled. Sponge and needle counts were correct on completion of the procedure. Blood loss was around 100 mL. The patient tolerated the procedure well and was transferred to the recovery room in stable condition. Infant had been taken stable to the full term nursery under the care of the pediatric nurse. Job ID: [id number] DocumentID: [id number] Dictated Date: 01/17/2022 13:45:55 Tractor Mechanic Helper Date: 01/17/2022 22:49:00 Dictated By: KIRSTEN HILL MD
[2022-01-18 01:05] VITALS: BP 127/83
[2022-01-18] MEDS: KETOROLAC 30 MG/ML VIAL IV SCH (03:14)
[2022-01-18] MEDS: HYDROCORTISONE 1% CREAM 30 GM TUBE TOP SCH ×2 (05:44→18:23)
[2022-01-18 05:47] VITALS: BP 126/79
[2022-01-18 08:30] VITALS: BP 132/63
[2022-01-18] MEDS ORDERED: HYDR30CR94 RC (09:56)
--- NOTE | 2022-01-18 09:57 | Progress Note ---
Standard Progress Note Progress Notes/Assess & Plan Date Seen by a Provider: Jan 18, 2022 Time Seen by a Provider: 09:56 Progress/Assessment & Plan This patient is without complaint. She is ambulating, voiding, tolerating oral intake well and has good pain control. Patient denies chest pain, denies shortness of breath, denies nausea vomiting, and denies headache. Vital Signs Date Time Temp Pulse Resp B/P (MAP) Pulse Ox O2 Delivery O2 Flow Rate FiO2 01/18/22 05:47 37.0 68 18 126/79 (95) 98 Room Air 01/18/22 01:05 37.0 62 18 127/83 (98) 98 Room Air 01/17/22 21:15 37.1 76 18 100 Room Air 01/17/22 15:03 36.7 53 18 125/99 (108) 01/17/22 14:30 36.4 15 101/83 (89) 98 Room Air 01/17/22 14:15 36.5 18 101/47 (65) 98 Room Air 01/17/22 14:00 36.3 16 108/75 (86) 98 Room Air 01/17/22 13:45 36.1 20 106/66 (79) 98 Room Air 01/17/22 13:31 36.4 16 96/65 (75) 98 01/17/22 11:15 36.5 61 18 100 Room Air I & O 01/18/22 07:00 Intake Total 1500 ml Output Total 4450 ml Balance -2950 ml Vital signs are stable. Patient is afebrile. Abdomen is benign. The surgical incision is clean dry and intact. Fundus is firm below the umbilicus and nontender. Extremities show no clubbing or cyanosis. There is no Homans' sign. Pelvic exam is deferred Assessment and plan Postoperative day #1 status post repeat delivery at 38+ weeks gestation. Patient is doing well will have routine convalescent care KIRSTEN HILL MD Jan 18, 2022 09:57
[2022-01-18] MEDS ORDERED: IBUPROFEN 800 MG (MOTRIN) TAB PO ONE (10:19)
[2022-01-18] MEDS: oxyCODONE/APAP 10/325MG (PERCOCET 10) TABLET PO PRN (10:21)
[2022-01-18] MEDS: IBUPROFEN 800 MG (MOTRIN) TAB PO SCH ×2 (10:22→18:22)
[2022-01-18] MEDS: DOCUSATE SODIUM 100 MG (COLACE) CAP PO SCH (10:22)
--- NOTE | 2022-01-18 12:45 | Anesthesia-Regional Post-Op ---
Regional Patient Condition Mental Status: Alert, Oriented x3 Circulation: Same as Pre-Op Headache: Absent Sensation: Full Recovery Motor Block: Absent Post Op Complications Complications None Follow Up Care/Instructions Patient Instructions None needed. Anesthesia/Patient Condition Patient is doing well, no complaints, stable vital signs, no apparent adverse anesthesia problems. No complications reported per nursing. DOM HAYNES CRNA Jan 18, 2022 12:45
[2022-01-18] MEDS ORDERED: IBUPROFEN 800 MG (MOTRIN) TAB PO SCH (14:45)
[2022-01-18 18:55] VITALS: BP 122/71
[2022-01-19 00:14] VITALS: BP 131/97
[2022-01-19] MEDS: IBUPROFEN 800 MG (MOTRIN) TAB PO SCH ×3 (00:14→12:49)
[2022-01-19] MEDS: oxyCODONE/APAP 10/325MG (PERCOCET 10) TABLET PO PRN ×2 (01:06→09:06)
[2022-01-19 06:05] VITALS: BP 130/79
[2022-01-19 09:04] VITALS: BP 132/78
[2022-01-19] MEDS: DOCUSATE SODIUM 100 MG (COLACE) CAP PO SCH (09:06)
--- NOTE | 2022-01-19 09:31 | Progress Note ---
Standard Progress Note Progress Notes/Assess & Plan Date Seen by a Provider: Jan 19, 2022 Time Seen by a Provider: 09:30 Progress/Assessment & Plan This patient is without complaint. She is ambulating, voiding, tolerating oral intake well and has good pain control. Patient denies chest pain, denies shortness of breath, denies nausea vomiting, and denies headache. Vital Signs Date Time Temp Pulse Resp B/P (MAP) Pulse Ox O2 Delivery O2 Flow Rate FiO2 01/18/22 05:47 37.0 68 18 126/79 (95) 98 Room Air 01/18/22 01:05 37.0 62 18 127/83 (98) 98 Room Air 01/17/22 21:15 37.1 76 18 100 Room Air 01/17/22 15:03 36.7 53 18 125/99 (108) 01/17/22 14:30 36.4 15 101/83 (89) 98 Room Air 01/17/22 14:15 36.5 18 101/47 (65) 98 Room Air 01/17/22 14:00 36.3 16 108/75 (86) 98 Room Air 01/17/22 13:45 36.1 20 106/66 (79) 98 Room Air 01/17/22 13:31 36.4 16 96/65 (75) 98 01/17/22 11:15 36.5 61 18 100 Room Air I & O 01/18/22 07:00 Intake Total 1500 ml Output Total 4450 ml Balance -2950 ml Vital signs are stable. Patient is afebrile. Abdomen is benign. The surgical incision is clean dry and intact. Fundus is firm below the umbilicus and nontender. Extremities show no clubbing or cyanosis. There is no Homans' sign. Pelvic exam is deferred Assessment and plan Postoperative day #1 status post repeat delivery at 38+ weeks gestation. Patient is doing well will have routine convalescent care January 20, 20002009 Patient is without complaint. She is ambulating, voiding, tolerating oral intake well and has good pain control. Patient denies chest pain, denies shortness of breath, denies nausea and vomiting, and denies headache. Vital Signs Date Time Temp Pulse Resp B/P (MAP) Pulse Ox O2 Delivery O2 Flow Rate FiO2 01/19/22 09:04 36.4 78 16 132/78 (96) 98 Room Air 01/19/22 06:05 37.2 76 16 130/79 (96) 99 Room Air 01/19/22 00:14 36.2 63 18 131/97 (108) 97 01/18/22 18:55 36.5 92 18 122/71 (88) 98 Room Air Vital signs are stable. Patient is afebrile. The abdomen is benign. The surgical incision is clean dry and intact. Fundus is firm below the umbilicus and nontender. Extremities show no clubbing or cyanosis. There is no Homans' sign. Assessment and plan Postoperative day #2 status post repeat delivery at 38 weeks gestation. Patient is doing well her baby is doing well. Plan will be discharged home and follow-up in clinic Final Diagnosis 38-week repeat delivery KIRSTEN HILL MD Jan 19, 2022 09:31
== END 2022-01-19 13:45 | disposition home or self-care (01) | DRG 788 ==
LOC: LDRP 11:09
PROVIDERS: ADMIT Obstetrics & Gynecology; ATTEND Obstetrics & Gynecology
PROC: 10D00Z1 Extraction of Products of Conception, Low, Open Approach (ICD-10-PCS; principal; 2022-01-17 12:44)
DX: O34.22 Maternal care for cesarean scar defect (isthmocele) (principal); Z3A.38 38 weeks gestation of pregnancy; Z37.0 Single live birth; O40.3XX0 Polyhydramnios, third trimester, not applicable or unspecified
CPT/HCPCS: 36415; 85025; 86850; 86900; 86901